=== PATIENT | female | born 1985 ===

== ENCOUNTER → 2017-05-31 | Outpatient (REF) | payer MEDICARE, OTHER ==
[2017-05-31 13:58] LABS: FREE T4 0.98 NG/DL (0.76-1.46); THYROID STIMULATING HORMONE 0.278 uIU/ML (0.358-3.740)
== END ==
LOC: M SFHCPLAZ 12:27
DX: Z86.39 Personal history of other endocrine, nutritional and metabolic disease (principal)
CPT/HCPCS: 84443